=== PATIENT | female | born 1955 | race Caucasian/White ===

== ENCOUNTER 2018-04-05 06:56 | Day surgery (SDC) | END 2018-04-05 16:17 | disposition home or self-care (01) ==

== ENCOUNTER 2018-04-11 14:45 | Observation (INO) | END 2018-04-12 14:35 | disposition home or self-care (01) ==

== ENCOUNTER 2018-04-23 11:36 | Day surgery (SDC) | END 2018-04-23 17:50 | disposition home or self-care (01) ==